=== PATIENT | female | born 1950 | race Caucasian/White ===

== ENCOUNTER 2018-02-04 08:28 | Emergency (ER) | payer OTHER ==
[~2018-02-04] VITALS: Ht 160 cm; Wt 63.5 kg
[2018-02-04] MEDS ORDERED: COZAAR100 MG (08:52)
[2018-02-04] MEDS ORDERED: LOPREEZA 1 MG-1 EACH (08:53)
[2018-02-04] MEDS ORDERED: HUMULIN 70100 UNIT/2 (08:54)
[2018-02-04] MEDS ORDERED: ASA81 MG (08:55)
[2018-02-04] MEDS ORDERED: TROMBONEX-D CA1 EACH (08:55)
[2018-02-04] MEDS ORDERED: PRILOSEC10 M2 (08:55)
[2018-02-04] MEDS ORDERED: TUSSI PRES-B L120 M1 PO (10:55)
[2018-02-04] MEDS ORDERED: OSEL75CA PO (10:55)
== END 2018-02-04 11:26 | disposition home or self-care (01) ==
LOC: ER 08:28
DX: J11.1 Influenza due to unidentified influenza virus with other respiratory manifestations (principal); B34.9 Viral infection, unspecified